=== PATIENT | female | born 1975 | race Caucasian/White ===

== ENCOUNTER → 2019-04-14 12:17 | Outpatient (CLI) | payer OTHER ==
[2014-06-17 12:54] VITALS: BMI 31.6
[~2019-04-14 12:17] MED LIST: BUPROPION XL300 MG PO; HYDROCHLOROTH12.5 M1 PO; LEXAPRO20 MG PO; MIRAPEX0.125 MG PO; PLAVIX75 MG PO; TOPROL XL50 MG PO; VERIPRED 220 MG/5 ML PO; ZYRTEC10 MG PO
--- NOTE | 2019-04-15 12:54 | EC ---
PATIENT:SARAHY CHENG DATE OF SERVICE: 04/14/19 SEX: F MEDICAL RECORD: [id number] DATE OF : [birth year] LOCATION:D.FORMERLY [facility] [place] AGE OF PATIENT: 43 ADMISSION DATE: 04/14/19 REFERRING PHYSICIAN: INTERPRETING PHYSICIAN: PAWEL SUMMERS MD ECHOCARDIOGRAM REPORT ECHO CHARGES 4 ECHO COMPLETE Date: 04/14/19 CLINICAL DIAGNOSIS: HTN/LVH HX OF MR/TR/AI ECHOCARDIOGRAPHIC MEASUREMENTS (adult normal given) AC root (d.<3.7cm) 3.4 cm LV Septum d (<1.2 cm> 1.6 cm Valve Excursion 1.8 cm LV Septum (systole) 1.9 cm Left Atria (s.<4.0cm> 3.1 cm LVPW d(<1.2cm) 1.6 cm RV (d.<2.3cm) 3.3 cm LVPW (sytole) 2.0 cm LV diastole(<5.6CM) 4.6 cm MV E-F(>70mm/sec) cm LV systole 2.6 cm LVOT Diameter 2.0 cm MV exc.(>10mm) 1.8 cm Est.ejection fraction (50-75%) % DOPPLER: LVIT cm/sec A 66.0 cm/sec E 78.0 cm/sec LA cm/sec RVSP 42 mmHg LVOT 103 cm/sec AOP1/2T m/s Asc. Ao 142 cm/sec RVOT 78 cm/sec RA cm/sec PA 95 cm/sec AV Gradient Peak 8.05 mmHg AV Mean 4.41 mmHg AV Area 2.3 cm MV Gradient Peak 5.11 mmHg MV Mean 1.66 mmHg MV Area cm COMMENTS: Pouncer: Yasir MCKEON Terminal Supervisor: 1 Dr. Summers TAPE# PACS Pericardial Effusion N DATE OF SERVICE: 04/14/2019 FINDINGS: 1. Left ventricular chamber size is within normal limits. Left ventricular systolic function is normal. Overall ejection fraction estimated at 60%. 2. Left atrium, right atrium, and right ventricle chamber sizes are within normal limits. 3. Valvular structures have normal structure and motion. 4. Doppler interrogation reveals mild mitral regurgitation, mild tricuspid regurgitation, no other valvular insufficiency or stenosis. Pulmonary systolic ECHOCARDIOGRAM REPORT [id number] SARAHY CHENG pressure estimated at 42 mmHg. 5. No evidence of pericardial effusion or left ventricular thrombus. TRANSINT:[id number] Voice Confirmation ID: [id number] DOCUMENT ID: [id number] PAWEL SUMMERS MD at 1254 CC: [id number] DICTATION DATE: 04/14/19 1510 DETAIL SERGEANT: 04/14/19 2305 DEP CLI 04/14/19 [place] [id number] [place] [id number]
== END | disposition home or self-care (01) ==
LOC: D.HCCECHO 12:17
PROVIDERS: ATTEND Internal Medicine Interventional Cardiology
DX: I10 Essential (primary) hypertension (principal)